=== PATIENT | female | born 1955 | race African-American/Black ===

== ENCOUNTER 2016-09-16 11:54 | Emergency (ER) | payer MEDICAID ==
[~2016-09-16] VITALS: Ht 167.6 cm; Wt 80.0 kg
[~2016-09-16 11:54] MED LIST: BENZ1TAB7 PO; COG2; DIAZ10TA4 PO; DIPH50TA19 PO; HAL1; RISPERDAL; VERA240C2 PO
[2016-09-16] MEDS ORDERED: IBUPROFEN 600MG TABLET PO STA (12:27)
[2016-09-16 12:47] LABS: CHLORIDE 109 mEq/L (98-107); INDEX HEMOLYSI 1 (1-3); INDEX ICTERIC 1 (1-4); INDEX LIPEMIC 1 (1-3)
[2016-09-16 12:48] LABS: PROTHROMBIN TIME 10.4 sec
[2016-09-16 12:54] LABS: ALANINE AMINOTRANSFERASE 14 IU/L (13-61); ALBUMIN 3.1 g/dL (3.4-5.0); ANION GAP 10; CALCIUM 8.6 mg/dL (8.5-10.1); CARBON DIOXIDE 26 mEq/L (21-32); UREA NITROGEN BLOOD 7 mg/dL (7-21); eGFR > 60 mL/min (>60)
[2016-09-16 12:59] LABS: BASOPHILS % 0.6 % (0.0-2.0); EOSINOPHILS % 0.3 % (0.0-5.0); HEMATOCRIT. 35.2 % (36.0-48.0); HEMOGLOBIN. 12.1 g/dL (12.0-16.0); MEAN CORPUSCULAR HEMOGLOBIN 33.8 pg (28.0-32.0); MEAN CORPUSCULAR VOLUME 98.3 fL (81.0-99.0); MEAN PLATELET VOLUME 9.3 fl (7.4-10.4); NEUTROPHILS % 66.1 % (40.0-76.0); PLATELET 166 x1000/uL (130-400); RED BLOOD CELL COUNT 3.58 mill/uL (4.2-5.4); RED CELL DISTRIBUTION WIDTH 15.3 % (11.6-14.6); WHITE BLOOD COUNT 6.2 x1000/uL (4.5-11.0)
[2016-09-16 13:00] LABS: MEAN CORPUSCULAR HGB CONC 34.4 g/dL (31.0-37.0)
[2016-09-16] MEDS ORDERED: POTASSIUM CHLORIDE 40MEQ/30ML UDC PO ONE (13:30)
[2016-09-16] MEDS ORDERED: POTASSIUM CHLORIDE 20MEQ TABLET SR PO NR (14:03)
[2016-09-16 16:14] VITALS: BP 160/105
== END 2016-09-16 16:16 | disposition home or self-care (01) ==
LOC: ER 12:50
DX: R07.89 Other chest pain (principal); F20.9 Schizophrenia, unspecified; E87.6 Hypokalemia; I10 Essential (primary) hypertension; Z86.73 Personal history of transient ischemic attack (TIA), and cerebral infarction without residual deficits; Z85.3 Personal history of malignant neoplasm of breast; Z90.710 Acquired absence of both cervix and uterus
CPT/HCPCS: 36415; 71010; 80053; 85025; 85610; 93005; 99285; Z7610

== ENCOUNTER 2016-12-26 02:11 | Inpatient (IN) | payer MEDICAID ==
[~2016-12-26] VITALS: Ht 167.6 cm; Wt 67.1 kg
[2016-12-26] MEDS ORDERED: HYDROCODONE/ACETAMINOPHEN 10/325MG TABLET PO ONE (06:30)
[2016-12-26] MEDS ORDERED: CLONIDINE 0.2MG TABLET PO ONE (08:15)
[2016-12-26 08:48] LABS: BASOPHILS % 0.2 % (0.0-2.0); EOSINOPHILS % 1.3 % (0.0-5.0); HEMATOCRIT. 33.2 % (36.0-48.0); HEMOGLOBIN. 11.3 g/dL (12.0-16.0); LYMPHOCYTES % 25.8 % (20.0-50.0); MEAN CORPUSCULAR HEMOGLOBIN 33.9 pg (28.0-32.0); MEAN CORPUSCULAR VOLUME 99.9 fL (81.0-99.0); MEAN PLATELET VOLUME 8.6 fl (7.4-10.4); MONOCYTES % 7.8 % (2.0-8.0); NEUTROPHILS % 64.9 % (40.0-76.0); PLATELET 152 x1000/uL (130-400); RED BLOOD CELL COUNT 3.32 mill/uL (4.2-5.4); RED CELL DISTRIBUTION WIDTH 19.7 % (11.6-14.6)
[2016-12-26 09:02] LABS: CARBON DIOXIDE 28 mEq/L (21-32); CHLORIDE 111 mEq/L (98-107)
[2016-12-26 12:00] VITALS: BP 130/78
[2016-12-26] MEDS ORDERED: ENOXAPARIN 40MG/0.4ML SYR SUBCUT SCH (14:30)
[2016-12-26 16:00] VITALS: BP 97/71
[2016-12-26] MEDS: HYDROCODONE/ACETAMINOPHEN 5/325MG TABLET PO PRN (18:51)
[2016-12-26] MEDS ORDERED: BACLOFEN 10MG TABLET PO PRN (19:00)
[2016-12-26] MEDS ORDERED: MORPHINE SULFATE 4 MG/ML CPJ (NOT FOR IM USE) IV PRN (19:00)
[2016-12-26 20:00] VITALS: BP 122/72
[2016-12-26] MEDS ORDERED: VERAPAMIL HCL 180MG ER TABLET PO SCH (21:00)
[2016-12-27] VITALS: BP 111/66
[2016-12-27 04:00] VITALS: BP 127/72
[2016-12-27 06:24] LABS: CARBON DIOXIDE 26 mEq/L (21-32); CHLORIDE 108 mEq/L (98-107)
[2016-12-27 07:03] LABS: BASOPHILS % 0.2 % (0.0-2.0); EOSINOPHILS % 1.2 % (0.0-5.0); HEMATOCRIT. 31.7 % (36.0-48.0); HEMOGLOBIN. 10.3 g/dL (12.0-16.0); LYMPHOCYTES % 38.7 % (20.0-50.0); MEAN CORPUSCULAR HEMOGLOBIN 32.7 pg (28.0-32.0); MEAN CORPUSCULAR VOLUME 100.9 fL (81.0-99.0); MEAN PLATELET VOLUME 9.3 fl (7.4-10.4); MONOCYTES % 8.8 % (2.0-8.0); NEUTROPHILS % 51.1 % (40.0-76.0); PLATELET 149 x1000/uL (130-400); RED BLOOD CELL COUNT 3.14 mill/uL (4.2-5.4); RED CELL DISTRIBUTION WIDTH 19.5 % (11.6-14.6)
[2016-12-27 08:00] VITALS: BP 130/94
[2016-12-27] MEDS: DIPHENHYDRAMINE 50MG CAPSULE PO SCH (09:00)
[2016-12-27] MEDS: HALOPERIDOL 1MG TABLET PO SCH (09:27)
[2016-12-27] MEDS: RISPERIDONE 1MG TABLET PO SCH (09:27)
[2016-12-27] MEDS: VERAPAMIL HCL 240MG SR TABLET PO SCH (09:29)
[2016-12-27] MEDS: ENOXAPARIN 40MG/0.4ML SYR SUBCUT SCH (09:30)
[2016-12-27] MEDS: HYDROCODONE/ACETAMINOPHEN 5/325MG TABLET PO PRN ×3 (10:35→23:06)
[2016-12-27 12:00] VITALS: BP 131/76
[2016-12-27 16:00] VITALS: BP 111/85
[2016-12-27] MEDS: DIAZEPAM 5 MG TABLET PO SCH ×2 (21:00→21:26)
[2016-12-27 21:25] VITALS: BP 125/85
[2016-12-28] VITALS: BP 122/80
[2016-12-28 08:00] VITALS: BP 134/84
[2016-12-28] MEDS: RISPERIDONE 1MG TABLET PO SCH (09:16)
[2016-12-28] MEDS: DIPHENHYDRAMINE 50MG CAPSULE PO SCH (09:16)
[2016-12-28] MEDS: HALOPERIDOL 1MG TABLET PO SCH (09:16)
[2016-12-28] MEDS: ENOXAPARIN 40MG/0.4ML SYR SUBCUT SCH (09:17)
[2016-12-28] MEDS: VERAPAMIL HCL 240MG SR TABLET PO SCH (09:25)
[2016-12-28 10:22] VITALS: BP 134/84
[2016-12-28 10:55] LABS: VITAMIN B12 SERUM 427 pg/mL (211-911)
[2016-12-28 12:00] VITALS: BP 144/88
[2016-12-28 13:22] LABS: FERRITIN 73 ng/mL (10-291)
== END 2016-12-28 15:25 | disposition home or self-care (01) | DRG 384 ==
LOC: ER 02:17 → 6EST 09:55 → ENRESERV 10:29
PROVIDERS: ADMIT Internal Medicine; ATTEND Internal Medicine
DX: S20.229A Contusion of unspecified back wall of thorax, initial encounter (principal); C50.919 Malignant neoplasm of unspecified site of unspecified female breast; M48.02 Spinal stenosis, cervical region; R62.7 Adult failure to thrive; E44.1 Mild protein-calorie malnutrition; E83.51 Hypocalcemia; I10 Essential (primary) hypertension; F17.200 Nicotine dependence, unspecified, uncomplicated; M25.78 Osteophyte, vertebrae; Y04.2XXA Assault by strike against or bumped into by another person, initial encounter; Y92.009 Unspecified place in unspecified non-institutional (private) residence as the place of occurrence of the external cause; Z85.3 Personal history of malignant neoplasm of breast; M47.9 Spondylosis, unspecified; Z86.79 Personal history of other diseases of the circulatory system; F41.9 Anxiety disorder, unspecified; Z68.23 Body mass index [BMI] 23.0-23.9, adult
CPT/HCPCS: 36415; 70450; 72125; 72128; 72131; 80048; 80053; 82607; 82668; 82728; 83540; 83550; 83615; 84443; 85025; 85044; 85651; 97116; 97162; 97166; 99285; J1650; J7040; Q0163

== ENCOUNTER 2018-06-20 14:40 | Emergency (ER) | payer MEDICAID ==
[~2018-06-20] VITALS: Ht 165.1 cm; Wt 64.0 kg
[~2018-06-20 14:40] MED LIST changes: +LISI-604 PO; +MECL-109 PO
[2018-06-20] MEDS ORDERED: KETOROLAC 60MG/2ML VIAL IM ONE (16:45)
[2018-06-20 18:25] VITALS: BP 142/81
== END 2018-06-20 18:52 | disposition home or self-care (01) ==
LOC: ER 14:57
DX: S42.291A Other displaced fracture of upper end of right humerus, initial encounter for closed fracture (principal); I10 Essential (primary) hypertension; Z86.73 Personal history of transient ischemic attack (TIA), and cerebral infarction without residual deficits; Z79.899 Other long term (current) drug therapy; W01.0XXA Fall on same level from slipping, tripping and stumbling without subsequent striking against object, initial encounter; Y93.89 Activity, other specified; Y92.89 Other specified places as the place of occurrence of the external cause; Y99.8 Other external cause status
CPT/HCPCS: 71045; 72125; 73030; 96372; 99284; J1885; A4565

== ENCOUNTER 2018-06-29 09:50 | Emergency (ER) | payer MEDICAID ==
[~2018-06-29] VITALS: Ht 167.6 cm; Wt 65.0 kg
[2018-06-29] MEDS ORDERED: ACETAMINOPHEN 325MG TABLET PO ONE (11:00)
[2018-06-29 11:43] LABS: CLARITY URINE CLOUDY (CLEAR); COLOR URINE YELLOW (YELLOW); KETONES URINE NEGATIVE (NEGATIVE); LEUKOCYTE ESTERASE URINE NEGATIVE (NEGATIVE); NITRITE URINE NEGATIVE (NEGATIVE); OCCULT BLOOD URINE TRACE (NEGATIVE); PH URINE 5.5 (4.5-8.0); PROTEIN URINE NEGATIVE (NEGATIVE); SPECIFIC GRAVITY URINE 1.021 (1.005-1.030)
[2018-06-29] MEDS ORDERED: TRAMADOL 50MG TABLET PO ONE (12:15)
[2018-06-29 13:16] VITALS: BP 159/97
== END 2018-06-29 13:41 | disposition home or self-care (01) ==
LOC: ER 10:30
DX: S42.211A Unspecified displaced fracture of surgical neck of right humerus, initial encounter for closed fracture (principal); I10 Essential (primary) hypertension; I67.1 Cerebral aneurysm, nonruptured; Z85.3 Personal history of malignant neoplasm of breast; Z90.10 Acquired absence of unspecified breast and nipple; W01.0XXA Fall on same level from slipping, tripping and stumbling without subsequent striking against object, initial encounter; Z91.81 History of falling; Y93.89 Activity, other specified; Y92.018 Other place in single-family (private) house as the place of occurrence of the external cause
CPT/HCPCS: 73060; 73090; 73130; 99284; A4565

== ENCOUNTER 2018-09-23 02:54 | Emergency (ER) | payer MEDICAID ==
[~2018-09-23] VITALS: Ht 165.1 cm; Wt 61.0 kg
[2018-09-23] MEDS ORDERED: GABAPENTIN 300MG CAPSULE PO ONE (04:00)
[2018-09-23] MEDS ORDERED: KETOROLAC 60MG/2ML VIAL IM ONE (04:00)
[2018-09-23 05:00] VITALS: BP 183/99
== END 2018-09-23 05:01 | disposition home or self-care (01) ==
LOC: ER 02:54
DX: B02.29 Other postherpetic nervous system involvement (principal); G89.29 Other chronic pain; I10 Essential (primary) hypertension; F14.10 Cocaine abuse, uncomplicated; Z85.3 Personal history of malignant neoplasm of breast
CPT/HCPCS: 96372; 99283; J1885; Z7610

== ENCOUNTER 2018-11-20 18:09 | Inpatient (IN) | payer MEDICAID ==
[~2018-11-20] VITALS: Ht 167.6 cm; Wt 81.6 kg
[~2018-11-20 18:09] MED LIST changes: -COG2; +COG2 PO; -HAL1; +HAL1 PO; -RISPERDAL; +RISPERDAL PO
[2018-11-20] MEDS ORDERED: SODIUM CHLORIDE 0.9% 1,000 ML IV ONE (20:26)
[2018-11-20] MEDS ORDERED: KETOROLAC 30MG/ML VIAL IV STA (20:26)
[2018-11-20 21:13] LABS: EOSINOPHILS % 3.2 % (0.0-5.0); HEMATOCRIT. 36.3 % (36.0-48.0); HEMOGLOBIN. 12.9 g/dL (12.0-16.0); LYMPHOCYTES % 35.3 % (20.0-50.0); MEAN CORPUSCULAR HEMOGLOBIN 33.8 pg (28.0-32.0); MEAN CORPUSCULAR VOLUME 94.9 fL (81.0-99.0); MEAN PLATELET VOLUME 8.3 fl (7.4-10.4); MONOCYTES % 8.3 % (2.0-8.0); NEUTROPHILS % 52.2 % (40.0-76.0); PLATELET 199 x1000/uL (130-400); RED BLOOD CELL COUNT 3.83 mill/uL (4.2-5.4); RED CELL DISTRIBUTION WIDTH 14.5 % (11.6-14.6)
[2018-11-20 21:19] LABS: CHLORIDE 111 mEq/L (98-107)
[2018-11-20 21:42] LABS: CLARITY URINE CLEAR (CLEAR); COLOR URINE YELLOW (YELLOW); KETONES URINE NEGATIVE (NEGATIVE); LEUKOCYTE ESTERASE URINE 2+ (NEGATIVE); NITRITE URINE NEGATIVE (NEGATIVE); OCCULT BLOOD URINE NEGATIVE (NEGATIVE); PROTEIN URINE NEGATIVE (NEGATIVE); SPECIFIC GRAVITY URINE 1.017 (1.005-1.030); UROBILINOGEN URINE 0.2 E.U./dL (0.2-1.0)
[2018-11-21] MEDS ORDERED: CEFTRIAXONE 1 G PREMIX 50 ML IV NR (02:00)
[2018-11-21] MEDS ORDERED: SODIUM CHLORIDE 0.9% 1,000 ML IV NR (02:00)
[2018-11-21] MEDS ORDERED: MAGNESIUM CITRATE 300ML SOLUTION PO NR (02:00)
[2018-11-21 08:00] VITALS: BP 169/92
[2018-11-21] MEDS ORDERED: DIVA250T45 PO (09:34)
[2018-11-21] MEDS ORDERED: OLAN10TA3 PO (09:34)
[2018-11-21] MEDS ORDERED: QUET100T PO (09:34)
[2018-11-21] MEDS ORDERED: ALBU4TAB6 MT (09:35)
[2018-11-21 10:00] VITALS: BP 169/92
[2018-11-21] MEDS ORDERED: PNEUMOCOCCAL 23-VAL P-SAC VAC 0.5 ML IM ONE (10:30)
[2018-11-21] MEDS ORDERED: DOCUSATE SODIUM 100MG CAPSULE PO PRN (10:45)
[2018-11-21] MEDS ORDERED: ONDANSETRON HCL 4MG/2ML INJ IV PRN (10:45)
[2018-11-21] MEDS ORDERED: ACETAMINOPHEN 325MG TABLET PO PRN (10:45)
[2018-11-21] MEDS ORDERED: DEXTROSE 50% WATER 50ML SYRINGE IV PRN (11:30)
[2018-11-21] MEDS: ENOXAPARIN 40MG/0.4ML SYR SUBCUT SCH (11:41)
[2018-11-21] MEDS: BLOOD SUGAR DIAGNOSTIC STRIP TEST SCH ×3 (11:43→20:26)
[2018-11-21] MEDS: SODIUM CHLORIDE 0.9% 1,000 ML IV SCH (11:55)
[2018-11-21] MEDS: INSULIN LISPRO 100 UNITS/ML SUBCUT SCH ×3 (11:55→20:26)
[2018-11-21 12:00] VITALS: BP 180/87
[2018-11-21] MEDS: CLONIDINE 0.1MG TABLET PO PRN (13:51)
[2018-11-21] MEDS: LISINOPRIL 40MG TABLET PO SCH (15:25)
[2018-11-21] MEDS: DIVALPROEX SODIUM 250MG ER TABLET PO SCH (15:25)
[2018-11-21 15:50] VITALS: BP 160/80
[2018-11-21 20:00] VITALS: BP 145/95
[2018-11-21] MEDS: HYDROCODONE/ACETAMINOPHEN 5/325MG TABLET PO PRN (20:13)
[2018-11-21] MEDS: QUETIAPINE FUMARATE 100MG TABLET PO SCH (20:13)
[2018-11-21] MEDS: OLANZAPINE 10MG TABLET PO SCH (20:14)
[2018-11-21] MEDS: SULFAMETHOXAZOLE/TRIMETHOPRIM 800/160MG TABLET PO SCH (20:14)
[2018-11-22] VITALS: BP 152/95
[2018-11-22] MEDS: SODIUM CHLORIDE 0.9% 1,000 ML IV SCH ×2 (03:55→13:25)
[2018-11-22 04:00] VITALS: BP 159/89
[2018-11-22 06:43] LABS: BASOPHILS % 0.7 % (0.0-2.0); EOSINOPHILS % 3.1 % (0.0-5.0); HEMATOCRIT. 38.4 % (36.0-48.0); HEMOGLOBIN. 13.3 g/dL (12.0-16.0); LYMPHOCYTES % 32.3 % (20.0-50.0); MEAN PLATELET VOLUME 8.2 fl (7.4-10.4); MONOCYTES % 8.7 % (2.0-8.0); NEUTROPHILS % 55.2 % (40.0-76.0); PLATELET 196 x1000/uL (130-400); RED BLOOD CELL COUNT 4.04 mill/uL (4.2-5.4); RED CELL DISTRIBUTION WIDTH 14.7 % (11.6-14.6)
[2018-11-22 07:15] LABS: CHLORIDE 109 mEq/L (98-107)
[2018-11-22] MEDS: INSULIN LISPRO 100 UNITS/ML SUBCUT SCH ×4 (07:50→21:00)
[2018-11-22] MEDS: BLOOD SUGAR DIAGNOSTIC STRIP TEST SCH ×4 (07:57→21:41)
[2018-11-22 08:00] VITALS: BP 170/101
[2018-11-22] MEDS: VERAPAMIL HCL 120MG TABLET PO SCH (09:08)
[2018-11-22] MEDS: HYDROCODONE/ACETAMINOPHEN 5/325MG TABLET PO PRN ×2 (09:09→17:33)
[2018-11-22] MEDS: RISPERIDONE 1MG TABLET PO SCH (09:10)
[2018-11-22] MEDS: DIVALPROEX SODIUM 250MG ER TABLET PO SCH (09:10)
[2018-11-22] MEDS: LISINOPRIL 40MG TABLET PO SCH (09:11)
[2018-11-22] MEDS: SULFAMETHOXAZOLE/TRIMETHOPRIM 800/160MG TABLET PO SCH ×2 (10:40→21:41)
[2018-11-22 12:00] VITALS: BP 125/82
[2018-11-22] MEDS: ENOXAPARIN 40MG/0.4ML SYR SUBCUT SCH (14:22)
[2018-11-22 16:00] VITALS: BP 134/84
[2018-11-22 20:00] VITALS: BP 119/74
[2018-11-22] MEDS: OLANZAPINE 10MG TABLET PO SCH (21:41)
[2018-11-22] MEDS: QUETIAPINE FUMARATE 100MG TABLET PO SCH (21:41)
[2018-11-23] VITALS: BP 143/83
[2018-11-23 04:00] VITALS: BP 157/87
[2018-11-23] MEDS: CLONIDINE 0.1MG TABLET PO PRN (06:43)
[2018-11-23] MEDS: HYDROCODONE/ACETAMINOPHEN 5/325MG TABLET PO PRN (06:46)
[2018-11-23] MEDS: INSULIN LISPRO 100 UNITS/ML SUBCUT SCH ×4 (07:50→21:00)
[2018-11-23 08:00] VITALS: BP 183/116
[2018-11-23] MEDS: BLOOD SUGAR DIAGNOSTIC STRIP TEST SCH ×4 (08:19→21:11)
[2018-11-23] MEDS: RISPERIDONE 1MG TABLET PO SCH (10:23)
[2018-11-23] MEDS: DIVALPROEX SODIUM 250MG ER TABLET PO SCH (10:23)
[2018-11-23] MEDS: SULFAMETHOXAZOLE/TRIMETHOPRIM 800/160MG TABLET PO SCH ×2 (10:24→21:08)
[2018-11-23] MEDS: VERAPAMIL HCL 120MG TABLET PO SCH (10:25)
[2018-11-23] MEDS: LISINOPRIL 40MG TABLET PO SCH (10:25)
[2018-11-23 12:00] VITALS: BP 126/86
[2018-11-23] MEDS: ENOXAPARIN 40MG/0.4ML SYR SUBCUT SCH (13:38)
[2018-11-23 16:00] VITALS: BP 136/83
[2018-11-23 20:00] VITALS: BP_SYST 142; BP_SYST 153; BP_DIAS 89; BP_DIAS 99
[2018-11-23] MEDS: OLANZAPINE 10MG TABLET PO SCH (21:08)
[2018-11-23] MEDS: QUETIAPINE FUMARATE 100MG TABLET PO SCH (21:08)
[2018-11-24] VITALS: BP 171/96
[2018-11-24] MEDS: CLONIDINE 0.1MG TABLET PO PRN (01:22)
[2018-11-24] MEDS: HYDROCODONE/ACETAMINOPHEN 5/325MG TABLET PO PRN ×2 (01:37→09:31)
[2018-11-24 04:00] VITALS: BP 149/93
[2018-11-24] MEDS: BLOOD SUGAR DIAGNOSTIC STRIP TEST SCH ×2 (07:20→12:31)
[2018-11-24] MEDS: INSULIN LISPRO 100 UNITS/ML SUBCUT SCH ×2 (07:50→12:31)
[2018-11-24 08:00] VITALS: BP 146/93
[2018-11-24] MEDS: LISINOPRIL 40MG TABLET PO SCH (09:29)
[2018-11-24] MEDS: SULFAMETHOXAZOLE/TRIMETHOPRIM 800/160MG TABLET PO SCH (09:29)
[2018-11-24] MEDS: DIVALPROEX SODIUM 250MG ER TABLET PO SCH (09:29)
[2018-11-24] MEDS: VERAPAMIL HCL 120MG TABLET PO SCH (09:30)
[2018-11-24] MEDS: RISPERIDONE 1MG TABLET PO SCH (09:30)
[2018-11-24] MEDS: ENOXAPARIN 40MG/0.4ML SYR SUBCUT SCH (11:46)
[2018-11-24 12:00] VITALS: BP 109/87
[2018-11-24 16:00] VITALS: BP 111/68
[2018-11-24 16:35] VITALS: BP 111/68
== END 2018-11-24 17:00 | disposition home health service (06) | DRG 351 ==
LOC: ER 19:47 → 6EST 11-21 06:15 → EDBEDREQ 11-21 06:18 → EDBEDREQTM 11-21 06:18 → ENRESERV 11-21 07:08
PROVIDERS: ADMIT Internal Medicine; ATTEND Internal Medicine
DX: M25.552 Pain in left hip (principal); G81.94 Hemiplegia, unspecified affecting left nondominant side; N39.0 Urinary tract infection, site not specified; E86.0 Dehydration; M48.02 Spinal stenosis, cervical region; R59.1 Generalized enlarged lymph nodes; I10 Essential (primary) hypertension; E78.5 Hyperlipidemia, unspecified; F17.210 Nicotine dependence, cigarettes, uncomplicated; F99 Mental disorder, not otherwise specified; J44.9 Chronic obstructive pulmonary disease, unspecified; Z85.3 Personal history of malignant neoplasm of breast; Z86.73 Personal history of transient ischemic attack (TIA), and cerebral infarction without residual deficits; Z90.11 Acquired absence of right breast and nipple; Z92.21 Personal history of antineoplastic chemotherapy; Z87.81 Personal history of (healed) traumatic fracture; R26.9 Unspecified abnormalities of gait and mobility
CPT/HCPCS: 36415; 71045; 71250; 72131; 72192; 73502; 80048; 82962; 83880; 84484; 90732; 93005; 93970; 96361; 96365; 96375; 97110; 97116; 97162; 97530; 99285; A6261; C1893; J0696; J1650; J1815; J1885; J7030